=== PATIENT | male | born 1955 ===

== ENCOUNTER → 2019-05-19 09:39 | Outpatient (CLI) | payer OTHER | END | disposition home or self-care (01) | LOC: LAB 09:39 | DX: R10.84 Generalized abdominal pain (principal); R94.5 Abnormal results of liver function studies ==

== ENCOUNTER 2019-12-12 19:10 | Emergency (ER) | payer OTHER ==
[~2019-12-12] VITALS: Ht 162.6 cm; Wt 54.4 kg
== END 2019-12-13 00:11 | disposition home or self-care (01) ==
LOC: ER 19:10
DX: N20.1 Calculus of ureter (principal)